=== PATIENT | female | born 1955 | race Caucasian/White ===

== ENCOUNTER → 2021-01-03 | Day surgery (SDC) | payer OTHER ==
[~2021-01-03] VITALS: Ht 157.5 cm; Wt 64.6 kg
[~2021-01-03] MED LIST: KRILL OIL 1,001 EAC1 PO; MILK THISTLE140 M1 PO; NORCO 5-325 TA1 EACH PO; ONDANSETRON ODT8 MG PO; PROZAC20 MG PO; VITAMIN B 12 IJ; VITAMIN D-40010 MCG PO
[2021-01-03 08:36] LABS: HCT 39.7 % (37.0-47.0); HGB 13.2 g/dl (12.5-16.0); MCH 30.1 pg (25.0-31.0); MCHC 33.2 g/dL (32.0-36.0); MCV 90.6 fL (78.0-100.0); MPV 9.5 fL (6.0-9.5); RBC 4.38 M/uL (4.20-5.40); RDW 12.2 % (11.5-14.0); WBC 7.1 K/uL (4.0-10.5)
[2021-01-03 08:53] LABS: ALBUMIN 3.7 g/dL (3.4-5.0); BILIRUBIN - TOTAL 0.6 mg/dL (0.2-1.0); BUN/CREAT RATIO (CALC) 11.9 RATIO; CREATININE 0.84 mg/dL (0.51-0.95); GLOBULIN (CALCULATION) 3.8 g/dL; POTASSIUM 4.4 mmol/L (3.5-5.1); TOTAL PROTEIN 7.5 g/dL (6.4-8.2)
== END | disposition home or self-care (01) ==
LOC: FAS 08:01
PROVIDERS: Surgery
DX: K64.1 Second degree hemorrhoids (principal); K58.9 Irritable bowel syndrome, unspecified; K57.30 Diverticulosis of large intestine without perforation or abscess without bleeding; M81.0 Age-related osteoporosis without current pathological fracture; N76.6 Ulceration of vulva; Z79.899 Other long term (current) drug therapy
CPT/HCPCS: 36415; 80053; J1100; J1610; J2704